=== PATIENT | female | born 2000 | race Caucasian/White ===

== ENCOUNTER 2022-03-24 11:21 | Outpatient (CLI) | payer OTHER ==
[~2022-03-24] VITALS: Ht 162.6 cm; Wt 90.6 kg
--- NOTE | 2022-03-24 11:35 | NUR ---
Presents to L&D, accompanied by significant other, ambulatory to unit. Reports seeing bright red blood while at home. Reports positive movement. States she had intercourse this am. Denies wearing lidia pad into hospital. Denies continued bleeding. SVE on admission /-2, palpable intact bag of water. Discussed labor check procedure with patient and significant other. Central monitoring explained. Verbalizes understanding. Denies any needs at this time. Labor check orders obtained from .
[2022-03-24 11:45] VITALS: BP 119/65; PULSE 95; TEMP 98.2
[2022-03-24 12:00] VITALS: BP 118/66; PULSE 86
[2022-03-24] MEDS ORDERED: ASPIRIN 81M81 MG/TA2 PO (12:00)
[2022-03-24] MEDS ORDERED: PRENATAL TABLET PO (12:01)
[2022-03-24 12:15] VITALS: BP 110/62; PULSE 90
[2022-03-24 12:30] VITALS: BP 114/66; PULSE 94
[2022-03-24 12:45] VITALS: BP 115/71; PULSE 93
--- NOTE | 2022-03-24 12:50 | NUR ---
Patient reports feeling mild irregular contractions, stated feels more like tightening. No cervical change noted. Labor precautions given. Patient and signficant other verbalize understanding. Discharge order received by .
--- NOTE | 2022-03-24 13:05 | NUR ---
Ambulatory off of unit with discharge instructions in hand.
== END 2022-03-24 13:05 | disposition home or self-care (01) ==
LOC: LDRO 11:21
DX: Z34.93 Encounter for supervision of normal pregnancy, unspecified, third trimester (principal); Z3A.40 40 weeks gestation of pregnancy

== ENCOUNTER 2022-03-25 10:08 | Inpatient (IN) | payer OTHER ==
[2022-03-25] VITALS (34 sets, daily range): BP systolic 104–140; BP diastolic 52–77; PULSE 86–130; TEMP 98–98.9
[~2022-03-25 10:08] MED LIST: ASPIRIN 81M81 MG/TA2 PO; PRENATAL TABLET PO
--- NOTE | 2022-03-25 10:30 | NUR ---
PT AMBULATORY TO [facility]3 WITH SPOUSE AND MOTHER OF PT. CHANGED INTO CLEAN GOWN. FHR MONITOR/TOCO APPLIED. VITAL SIGNS WNL. PT COMPLAINING OF CONTRACTIONS AND BLOODY SHOW. REPORTS GOOD MOVEMENT AND NO LEAKING OF FLUID. 1030 SVE BY THIS RN /. PLAN OF CARE DISCUSSED. PT VERBALIZES UNDERSTANDING. CALL LIGHT WITHIN REACH.
[2022-03-25 12:17] LABS: BASO % 0.2 % (0.0-2.0); EOS % 0.1 % (0.0-4.0); GRAN # 8.8 K/mm3 (1.4-6.5); GRAN % 85.1 % (42.2-75.2); HEMOGLOBIN 12.6 g/dl (12.5-16.0); LYMPH # 0.9 K/mm3 (1.2-3.4); LYMPH % 8.2 % (20.0-51.0); MEAN CELL VOLUME 87 fl (80.0-100.0); MEAN CORPUSCULAR HEMOGLOBIN 30 pg (27-31); MEAN CORPUSCULAR HGB CONC 35 g/dl (33.0-37.0); MEAN PLATELET VOLUME 11.1 fl (7.4-10.4); MONO # 0.6 K/mm3 (0.1-0.6); MONO % 5.9 % (1.7-9.3); PLATELET COUNT 246 K/mm3 (130-400); RED BLOOD COUNT 4.18 M/mm3 (4.10-5.30); REDCELL DISTRIBUTION WIDTH-CV 12.6 % (11.5-14.5)
[2022-03-25 12:18] LABS: HEMATOCRIT 36.4 % (37.0-47.0)
--- NOTE | 2022-03-25 16:25 | NUR ---
[id number] THIS RN ADJUSTING CONTRACTION MONITOR. DECELERATIONS NOTED. THIS RN ADJUSTING FHR MONITOR DUE TO MATERNAL POSITION.
--- NOTE | 2022-03-25 17:00 | NUR ---
1647 L. ARGELIA CALLED TO RETAPE PATIENTS EPIDURAL. SMALL AMT OF BLOOD NOTED ON SHEETS FROM EPIDURAL SITE. 1653 L ARGELIA IN PTS ROOM REPLACING EPIDURAL TAPE AND ASSESSING SITE.
[2022-03-25 19:14] LABS: PROTHROMBIN TIME 10.9 SECONDS (9.7-12.8)
[2022-03-25 19:15] LABS: PARTIAL THROMBOPLASTIN TIME 26.1 SECONDS (26.0-37.0)
--- NOTE | 2022-03-25 23:53 | NUR ---
PT AMB TO BR TO VOID AND DO PERICARE. PADS AND GOWN CHANGED. PT AMB BACK TO BED WITHOUT DIFFICULTY.
[2022-03-26 00:10] VITALS: BP 118/78; PULSE 100; TEMP 98.7
[2022-03-26 04:05] VITALS: BP 118/78; PULSE 88; TEMP 98.4
[2022-03-26 08:21] VITALS: BP 116/40; PULSE 90; TEMP 97.3
[2022-03-26 11:15] VITALS: BP 127/62; PULSE 98; TEMP 97.4
[2022-03-26 15:48] VITALS: BP 123/60; PULSE 84; TEMP 97.7
[2022-03-26 19:00] VITALS: BP 113/71; PULSE 84; TEMP 98.1
[2022-03-27 04:00] VITALS: BP 115/60; PULSE 82; TEMP 98
[2022-03-27 07:15] VITALS: BP 127/52; PULSE 89; TEMP 97.8
[2022-03-27] MEDS ORDERED: IBU600 MG PO (08:45)
== END 2022-03-27 09:40 | disposition home or self-care (01) | DRG 807 ==
LOC: LDRO 10:08 → LDR 11:46 → OB 23:55
PROVIDERS: ADMIT Obstetrics & Gynecology
PROC: 10E0XZZ Delivery of Products of Conception, External Approach (ICD-10-PCS; principal; 2022-03-25)
DX: O99.02 Anemia complicating childbirth (principal); Z37.0 Single live birth; D64.9 Anemia, unspecified; O99.52 Diseases of the respiratory system complicating childbirth; J45.909 Unspecified asthma, uncomplicated; O69.81X0 Labor and delivery complicated by cord around neck, without compression, not applicable or unspecified; O99.284 Endocrine, nutritional and metabolic diseases complicating childbirth; E28.2 Polycystic ovarian syndrome; O99.824 Streptococcus B carrier state complicating childbirth; O77.0 Labor and delivery complicated by meconium in amniotic fluid; Z3A.40 40 weeks gestation of pregnancy; Z86.16 Personal history of COVID-19
CPT/HCPCS: J2405; J2540; J2590; J7120